=== PATIENT | male | born 1955 | race Caucasian/White ===

== ENCOUNTER 2018-11-21 19:32 | Emergency (ER) | payer OTHER ==
--- NOTE | 2018-11-21 20:48 | EDPHY ---
H & P Time Seen by Provider: 11/21/18 19:38 HPI/ROS: CHIEF COMPLAINT: Vision change, right eye HISTORY OF PRESENT ILLNESS: Patient presents telling me that he thinks he has a "posterior vitreous detachment". He states he had this in his left eye 2014 and symptoms are similar. He states that approximately 4:00 p.m. This afternoon he had the onset of a dark floater in his central visual field. He also states he saw a"C of grade dots". Now he describes some flashers and a "bright arc". Otherwise he states his vision is normal without blurriness or REVIEW OF SYSTEMS: Negative except per HPI. General Appearance: Alert, no distress. Eyes: Pupils equal and round no icterus, extraocular motions intact, no injection. Anterior chamber clear, retinal exam shows sharp optical disc, normal vasculature. Respiratory: No respiratory distress Neurological: Awake, alert, no focal deficits. Skin: Warm and dry, no rashes. Musculoskeletal: Neck is supple nontender. Extremities are symmetrical, full range of motion, no edema. Psychiatric: Patient is oriented X 3, there is no agitation. Medical/surgical history: Depression, obstructive sleep apnea, surgeries include bone graft for feet, hernia repair, prostate surgery. Social history: Denies tobacco or drugs, occasional ETOH. Smoking Status: Former smoker Constitutional: Initial Vital Signs Temperature (C) 36.8 C 11/21/18 19:42 Heart Rate 65 11/21/18 19:42 Respiratory Rate 18 11/21/18 19:42 Blood Pressure 145/103 H 11/21/18 19:42 O2 Sat (%) 95 11/21/18 19:42 O2 Delivery Mode Room Air Allergies/Adverse Reactions: Iodinated Contrast- Oral and IV Dye Allergy (Verified 11/21/18 19:41) iv dye Allergy (Uncoded 11/21/18 19:41) Home Medications: Medication Instructions Recorded Atorvastatin Calcium 11/21/18 Fluoxetine HCl 11/21/18 traZODone 11/21/18 Medical Decision Making ED Course/Re-evaluation: 8:[address] Ward, ophthalmology, reviewed patient's history, presentation, physical exam. Dr. Ward asked that patient be seen by him in his [place] office at 7:30 a.m. In the morning tomorrow. This was communicated with patient and his . Differential Diagnosis: Differential diagnosis includes but is not limited to retinal detachment, vitreous detachment, foreign body eye, lens dislocation. After evaluation suspect patient with vitreous detachment. Discussed as noted above with Dr. Ward, ophthalmology. Plan is for close ophthalmological follow-up tomorrow morning at 7:30 a.m. At 's office in [place]. Patient advised to avoid vigorous activity. Patient understands follow-up and return precautions. Stable for discharge. Departure - Departure Clinical Impression: Vision changes Condition: Good Additional Instructions: Dr. Ward will see you tomorrow morning at 7:30 a.m.. His office is at [address] [place] [address]. Phone number is [phone]. Reduce activity and visual stimulation tonight. Referrals: Shreyas Ruiz DO [Primary Care Provider] - As per Instructions Camille Ward MD [Medical Doctor] - As per Instructions
[2018-11-21 20:49] VITALS: BP 135/94
== END 2018-11-21 20:53 | disposition home or self-care (01) ==
LOC: CED 19:32
DX: H53.9 Unspecified visual disturbance (principal); G47.33 Obstructive sleep apnea (adult) (pediatric); F32.9 Major depressive disorder, single episode, unspecified; Z87.891 Personal history of nicotine dependence